=== PATIENT | female | born 1990 | race Caucasian/White ===

== ENCOUNTER → 2019-01-20 | Outpatient (CLI) | payer BC ==
--- NOTE | 2019-01-20 10:51 | PCVCIMAG ---
APPROVED REPORT Study performed: 01/20/2019 09:29:37 Exam: Stress Echocardiogram Indication: Chest pain Patient Location: Echo lab Stress Nurse: Rosina Benítez RN Room #: 2 Status: routine Ht: 5 ft 3 in HR: 67 bpm BP: 104/76 mmHg Rhythm: NSR Medical History Medical History: IVF Cardiac Risk Factors: none Previous Cardiac Procedures: none Pretest Chest Pain Characteristics: Non-exertional Chest pain Exercise History: Physically active Procedure The patient underwent an Exercise Stress Test using the Joelle Protocol. Blood pressure, heart rate, and EKG were monitored. An Echocardiogram was performed by water filtration technician in four stages in quad fashion. At peak stress, four selected images were obtained and placed side by side with resting images for comparison. Stress Test Details Stress Test: Exercise stress testing was performed using a Joelle protocol. HR Resting HR: 67 bpmMax Heart Rate (APMHR): 190 bpm Max HR Achieved: 193 bpmTarget HR (85% APMHR): 161 bpm % of APMHR: 101 Recovery HR: 100 bpm HR response to stress: Normal HR response to stress BP Resting BP: 104/76 mmHg Max BP: 126/60 mmHg Recovery BP: 124/60 mmHg BP response to stress: Normal blood pressure response to stress. ECG Resting ECG: Sinus Rhythm Stress ECG: Sinus Rhythm ST Change: Non-ischemic Maximum ST Deviation: -0.65 mm Arrhythmia: rare PACs Recovery ECG: Sinus Rhythm Recovery ST Change: Non-ischemic Recovery ST Deviation: 0.15 mm Recovery Arrhythmia: None Clinical Reason for Termination: Maximal effort Stress Symptoms: chest pain,tightness Exercise duration: 12 min 01 sec Highest Stage Achieved: Stage 4: 4.2 mph at 16% grade. Exercise capacity: 13.4 METs Overall Exercise Capacity for Age: Good Scale: Active Angina Score: Non-Limiting No complications. Stress ECG Conclusion The patient exercised according to the JOELLE protocol for 12:01 mins; achieving a work level of 13.4METS. The resting heart rate of 67 bpm linus to a maximum heart rate of 193 bpm. This value represents 101% of the maximal, age-predicted heart rate. The resting blood pressure of 104/76 mmHg, linus to a maximum blood pressure of 126/60 mmHg. The exercise test was stopped due to fatigue. Gray Treadmill Score is 11.3 which is Low risk. Pre-Stress Echo The resting Echocardiogram showed normal left ventricular contractility with an estimated Ejection Fraction of about 55-60%. Normal wall motion in all segments on baseline images. Post-Stress Echo The stress Echocardiogram showed normal left ventricular contractility with an estimated Ejection Fraction of about 65-70%. Normal augmentation of wall motion in all segments on post stress images. Clinical No clinical or ECG evidence for ischemia. Conclusion Clinical Response: Non-ischemic Exercise Capacity: Superior Stress ECG Response: Non-ischemic Stress Echo Images: Non-ischemic No clinical, EKG or echocardiographic evidence for ischemia. No echocardiographic evidence for exercise induced ischemia. Normal stress echocardiogram with maximal exercise stress. Normal color doppler. No regurgitation or stenosis present on pulmonic, mitral, tricuspid or aortic valves. <Conclusion> No clinical, EKG or echocardiographic evidence for ischemia. No echocardiographic evidence for exercise induced ischemia. Normal stress echocardiogram with maximal exercise stress. Normal color doppler. No regurgitation or stenosis present on pulmonic, mitral, tricuspid or aortic valves.
== END | disposition home or self-care (01) ==
LOC: PCVCIMAG 09:11
PROVIDERS: ATTEND Internal Medicine Cardiovascular Disease
DX: R07.9 Chest pain, unspecified (principal)
CPT/HCPCS: 93325; 93351